=== PATIENT | male | born 1985 | race Caucasian/White ===

== ENCOUNTER 2024-04-14 21:52 | Emergency (ER) | payer OTHER ==
[~2024-04-14] VITALS: Ht 177.8 cm; Wt 65.0 kg
[~2024-04-14 21:52] MED LIST: AMOXICILLIN500 MG PO; NORCO 5-325 TA1 EACH PO
[2024-04-14 22:05] LABS: BILIRUBIN, URINE NEGATIVE (negative); BLOOD/HGB, URINE LARGE (Negative); KETONE, URINE NEGATIVE (Negative); LEUK ESTERASE, URINE LARGE (negative); NITRITE, URINE POSITIVE (negative)
[2024-04-14 22:10] LABS: EPITHELIAL CELLS, URINE SQUAMOUS 1+ /lpf (0-1+)
[2024-04-14 22:11] LABS: BACTERIA, URINE 3+ /hpf (negative); CASTS, URINE NONE SEEN \\lpf; COLLECTION TYPE, URINE VOID; CRYSTALS, URINE NONE SEEN (0-1+); REFLEX CULTURE, URINE Yes (No); WHITE BLOOD CELLS, URINE >50 /HPF (0-5)
[2024-04-14] MEDS ORDERED: NITROFURANTOIN MONOHYD MACROCR 100 MG CAP PO ONE (22:30)
[2024-04-14] MEDS ORDERED: PHENAZOPYRIDINE HCL 95 MG TAB PO ONE (22:30)
[2024-04-14] MEDS ORDERED: PYRIDIUM100 MG PO (22:33)
[2024-04-14] MEDS ORDERED: MACROBID 100 M100 MG PO (22:33)
[2024-04-14 22:39] VITALS: BP 154/106
[2024-04-14 23:33] LABS: N. GONORRRHOEAE BY PCR NOT DETECTED (NOT DETECT)
== END 2024-04-14 22:39 | disposition home or self-care (01) ==
LOC: ED 21:52
PROVIDERS: Internal Medicine
DX: N39.0 Urinary tract infection, site not specified (principal); F17.200 Nicotine dependence, unspecified, uncomplicated
CPT/HCPCS: 81001; 87088; 99283

== ENCOUNTER 2024-08-18 17:34 | Emergency (ER) | payer OTHER ==
[~2024-08-18] VITALS: Ht 177.8 cm; Wt 62.6 kg
[~2024-08-18 17:34] MED LIST changes: +MACROBID 100 M100 MG PO; +PYRIDIUM100 MG PO
[2024-08-18] MEDS ORDERED: SODIUM CHLORIDE 0.9% 1,000 ML IV PRN (18:30)
[2024-08-18 18:33] LABS: BASOPHILS 2.4 % (0-2); EOSINOPHILS 3.5 % (0-6); HEMATOCRIT 40.8 % (35.0-50.0); HEMOGLOBIN 14.1 g/dL (12.0-18.0); LYMPHOCYTES 13.9 % (24-44); MCH 34.8 (27-36); MCHC 34.7 g/dl (30-36); MCV 100.3 fl (81-99); MONOCYTES 14.5 % (0-12); NEUTROPHILS 65.7 % (39-80); PLATELET COUNT 94 K/uL (140-440); RBC 4.07 M/ul (4.3-5.7); RDW 13.1 (10.5-15.0)
[2024-08-18 18:42] LABS: CREATINE KINASE 207 U/L (39-308)
[2024-08-18 18:43] LABS: ALCOHOL, MEDICAL 503 ng/dL (<3)
[2024-08-18 18:44] LABS: INR 0.85 (0.80-1.30); PROTIME 11.5 Sec (11.2-14.2)
[2024-08-18 18:46] LABS: PARTIAL THROMBOPLASTIN TIME 31.8 Sec (22.9-41.3)
[2024-08-18 18:51] LABS: BILIRUBIN, URINE NEGATIVE (negative); BLOOD/HGB, URINE TRACE-I (Negative); KETONE, URINE NEGATIVE (Negative); LEUK ESTERASE, URINE NEGATIVE (negative); NITRITE, URINE NEGATIVE (negative); PH, URINE 5.5 (5-7)
[2024-08-18 18:59] LABS: RED BLOOD CELLS, URINE 0-1 /hpf (0-5)
[2024-08-18 19:00] LABS: BACTERIA, URINE NONE SEEN /hpf (negative); CASTS, URINE NONE SEEN \\lpf; COLLECTION TYPE, URINE CLEAN CATCH; CRYSTALS, URINE NONE SEEN (0-1+); EPITHELIAL CELLS, URINE NONE SEEN /lpf (0-1+); REFLEX CULTURE, URINE No (No); WHITE BLOOD CELLS, URINE 0-1 /HPF (0-5)
[2024-08-18 19:07] LABS: AMPHETAMINES, URINE NEGATIVE (NEGATIVE); BARBITURATES, URINE NEGATIVE (NEGATIVE); BENZODIAZEPINE, URINE NEGATIVE (NEGATIVE); BUPRENORPHINE, URINE NEGATIVE (NEGATIVE); CANNABINOID, URINE NEGATIVE (NEGATIVE); COCAINE, URINE NEGATIVE (NEGATIVE); ECSTASY, URINE NEGATIVE (NEGATIVE); FENTANYL, URINE NEGATIVE (NEGATIVE); METHADONE, URINE NEGATIVE (NEGATIVE); OPIATES, URINE NEGATIVE (NEGATIVE); OXYCODONE, URINE NEGATIVE (NEGATIVE); PHENCYCLIDINE, URINE NEGATIVE (NEGATIVE)
[2024-08-18 19:29] LABS: ALBUMIN 3.8 g/dL (3.4-5.0); ALBUMIN/GLOBULIN RATIO 1.03 (1.1-2.4); BILIRUBIN, TOTAL 0.5 ng/dL (0.2-1.0); BUN/CREATININE RATIO 4.91 (6.0-28.6); CALCIUM 8.2 mg/dL (8.5-10.1); CREATININE, SERUM 0.61 mg/dL (0.70-1.30); PROTEIN, TOTAL 7.5 g/dL (6.4-8.2)
[2024-08-18] MEDS ORDERED: FOLIC ACID 1 MG/0.2 ML ML ONE (20:08)
[2024-08-18] MEDS ORDERED: MULTIVITAMINS 10 ML,FOLIC ACID 1 MG,THIAMINE HCL 100 MG in SODIUM CHLORIDE 0.9% 1,000 ML IV ONE (20:15)
[2024-08-18] MEDS ORDERED: CHLORDIAZEPOXIDE 25 MG CAP PO ONE ×2 (22:15→23:30)
[2024-08-18] MEDS ORDERED: CHLORDIAZEPOXID25 MG PO (23:11)
[2024-08-18] MEDS ORDERED: NICOTINE 21 MG/24 HR 1 EA TDSY TD ONE (23:45)
[2024-08-18 23:47] VITALS: BP 129/86
== END 2024-08-18 23:48 | disposition home or self-care (01) ==
LOC: ED 17:34
PROVIDERS: Emergency Medicine
DX: F10.929 Alcohol use, unspecified with intoxication, unspecified (principal); Y90.8 Blood alcohol level of 240 mg/100 ml or more; I10 Essential (primary) hypertension; F17.200 Nicotine dependence, unspecified, uncomplicated; Z90.5 Acquired absence of kidney; Z91.81 History of falling
CPT/HCPCS: 36415; 70450; 72125; 80053; 80307; 81001; 82553; 83735; 85025; 85610; 85730; 96374; 99284-25; G0480; J3411; J7030

== ENCOUNTER 2024-08-19 08:04 | Emergency (ER) | payer OTHER ==
[~2024-08-19] VITALS: Ht 177.8 cm; Wt 62.6 kg
[~2024-08-19 08:04] MED LIST changes: +CHLORDIAZEPOXID25 MG PO
--- OUTSIDE RECORDS SUMMARY | 2024-08-19 08:06 | XMS ---
PreManage Notification: PRISCILA HEADLEY Security Living Coach Events No recent Security Events currently on file CRITERIA MET - [facility] - 2 Visits in 30 Days CARE PROVIDERS -, [facility] Dentist: Conference Assistant [facility] PHONE: [phone] -Magali- Dentist: Conference Assistant [facility] PHONE: [phone] MELVI BARRAGAN Current PHONE: [phone] Mauro has no Care Guidelines for this patient. Jim VISIT COUNT (12 MO.) 3 [facility] Stein TOTAL 3 NOTE: Visits indicate total known visits. ED/UCC VISIT TRACKING (12 MO.) 08/19/2024 08:04 [facility] TYPE: Emergency COMPLAINT: - ALCOHOL WITHDRAWAL 08/18/2024 17:34 [facility] TYPE: Emergency COMPLAINT: - INTOXICATION 04/14/2024 21:[address] [facility] TYPE: Emergency COMPLAINT: - BLOOD IN URINE DIAGNOSES: - Dysuria - Nicotine dependence, unspecified, uncomplicated - Urinary tract infection, site not specified INPATIENT VISIT TRACKING (12 MO.) No inpatient visits to display in this time frame [email or web address]
[2024-08-19] MEDS ORDERED: SODIUM CHLORIDE 0.9% 1,000 ML IV PRN (08:15)
[2024-08-19] MEDS ORDERED: LORazepam 2 MG/ML VIAL IV ONE ×3 (08:15→10:15)
[2024-08-19] MEDS ORDERED: NICOTINE 14 MG/24 HR 1 EA TDSY TD ONE (08:45)
[2024-08-19 10:57] VITALS: BP 153/106
== END 2024-08-19 11:00 | disposition home or self-care (01) ==
LOC: ED 08:04
DX: F10.239 Alcohol dependence with withdrawal, unspecified (principal); Z02.89 Encounter for other administrative examinations; I10 Essential (primary) hypertension; F17.200 Nicotine dependence, unspecified, uncomplicated; Z79.899 Other long term (current) drug therapy
CPT/HCPCS: 96374; 96376; 99284-25; J2060; J7030

== ENCOUNTER 2025-03-12 22:51 | Emergency (ER) | payer OTHER ==
[~2025-03-12] VITALS: Ht 177.8 cm; Wt 63.0 kg
[2025-03-12] MEDS ORDERED: AMOX TR-K CLV1 EAC1 PO (23:02)
[2025-03-12 23:12] LABS: BASOPHILS 0.2 % (0.2-1.2); EOSINOPHILS 0.1 % (0.8-7.0); LYMPHOCYTES 12.0 % (21.8-53.1); MCH 31.1 PG (25.7-32.2); MCHC 34.9 g/dL (32.3-36.5); MCV 89.2 fL (79.0-92.2); MONOCYTES 7.6 % (5.3-12.2); NEUTROPHILS 79.8 % (34.0-67.9); RBC 4.53 M/uL (4.63-6.08)
[2025-03-12] MEDS ORDERED: PIPERACILLIN/TAZOBACTAM 4.5 GM in SODIUM CHLORIDE 0.9% 100 ML IV ONE (23:15)
[2025-03-12] MEDS ORDERED: KETOROLAC TROMETHAMINE 30 MG/ML VIAL IV ONE (23:15)
[2025-03-12 23:30] LABS: ALT (SGPT) 22.0 U/L (14-59); AST (SGOT) 12.0 U/L (15-37); GLOMERULAR FILTRATION RATE,EST 112.0 mL/min (>60); PROTEIN, TOTAL 7.5 g/dL (6.4-8.2); UREA NITROGEN 6.0 mg/dL (7-18)
[2025-03-13] MEDS ORDERED: HYDROCODON-ACE1 EA10 PO (01:03)
[2025-03-13] MEDS ORDERED: HYDROCODONE BIT/ACETAMINOPHEN 5/325 MG 1 TAB HOME.PACK PO ONE (01:15)
[2025-03-13 01:23] VITALS: BP 128/86
== END 2025-03-13 01:23 | disposition home or self-care (01) ==
LOC: ED 22:51
PROVIDERS: Family Medicine
DX: K04.7 Periapical abscess without sinus (principal); I10 Essential (primary) hypertension; F17.200 Nicotine dependence, unspecified, uncomplicated
CPT/HCPCS: 36415; 70487; 80053; 85025; 96365; 96375; 99284-25; A9270; J1885; J2543; Q9967